=== PATIENT | female | born 1995 | race Caucasian/White ===

== ENCOUNTER 2017-04-09 05:08 | Inpatient (IN) | payer BC, OTHER ==
[2017-04-06 12:34] LABS: ABSOLUTE LYMPHOCYTES (AUTO) 1.6 10^3/uL (0.5-4.7); ABSOLUTE MONOCYTES (AUTO) 0.3 10^3/uL (0.1-1.4); ABSOLUTE NEUT (AUTO) 6.5 10^3/uL (1.7-8.2); BASOPHILS % (AUTO) 0.1 % (0-2); EOSINOPHILS % (AUTO) 0.3 % (0-6); HEMATOCRIT 33.2 % (36.0-47.0); HEMOGLOBIN 11.2 g/dL (12.0-15.5); HGB HCT DIFFERENCE 0.4; LYMPHOCYTES % (AUTO) 19.2 % (13-45); MEAN CORPUSCULAR HEMOGLOBIN 28.1 pg (27.0-33.4); MEAN CORPUSCULAR HGB CONC 33.7 g/dL (32.0-36.0); MEAN CORPUSCULAR VOLUME 84 fl (80-97); RED BLOOD COUNT 3.97 10^6/uL (3.72-5.28); RED CELL DISTRIBUTION WIDTH 14.4 % (11.5-14.0); SEGMENTED NEUTROPHILS % (AUTO) 76.4 % (42-78); WHITE BLOOD COUNT 8.5 10^3/uL (4.0-10.5)
[2017-04-06 12:43] LABS: APPEARANCE,URINE CLEAR; BILIRUBIN,URINE NEGATIVE (NEGATIVE); GLUCOSE, URINE NEGATIVE (NEGATIVE); KETONES,URINE NEGATIVE (NEGATIVE); LEUKOCYTE ESTERASE,URINE TRACE (NEGATIVE); NITRITE,URINE NEGATIVE (NEGATIVE); PROTEIN,URINE NEGATIVE (NEGATIVE); URINE SPECIFIC GRAVITY 1.004; UROBILINOGEN,URINE NEGATIVE mg/dL (<2.0)
[2017-04-06 13:00] LABS: URINE BARBITURATES SCREEN NEGATIVE; URINE METHADONE SCREEN NEGATIVE; URINE OPIATES LOW NEGATIVE; URINE PHENCYCLIDINE SCREEN NEGATIVE
[~2017-04-09 05:08] MED LIST: CEFAZOLIN SODIUM 2 GM in DEXTROSE 5%-WATER 100 ML IV PRN; LACTATED RINGERS 1000 ML IV PRN; LIDOCAINE 0.5% INJ-PF (5 MG/ML) 50 ML SDV SUBCUT PRN; RINGERS SOLUTION,LACTATED 1,500 ML IV PRN
[2017-04-09] MEDS ORDERED: CEFAZOLIN INJ 1 GM VIAL ONE (06:39)
[2017-04-09] MEDS ORDERED: OXYTOCIN/NORMAL SALINE 20 UNIT/1,000 ML RTUINJ ONE (07:15)
[2017-04-09] MEDS ORDERED: OXYTOCIN 10 UNIT/ML VIAL ONE (07:15)
[2017-04-09] MEDS ORDERED: FENTANYL CITRATE INJ/PF 100 MCG/2 ML AMPUL ONE (07:15)
[2017-04-09] MEDS ORDERED: EPHEDRINE SULFATE INJ 50 MG/1 ML AMPULE ONE (07:15)
[2017-04-09] MEDS ORDERED: MIDAZOLAM 2 MG/2 ML INJ ONE (07:16)
[2017-04-09] MEDS ORDERED: KETAMINE HCL INJ 500 MG/10 ML VIAL ONE (08:16)
[2017-04-09] MEDS ORDERED: MORPHINE SULFATE 10 MG/ML INJ IV PRN (08:36)
[2017-04-09] MEDS ORDERED: MEPERIDINE HCL/PF INJ 25 MG/1 ML DISP.SYRIN IV PRN (08:36)
[2017-04-09] MEDS ORDERED: DIPHENHYDRAMINE HCL 50 MG/ML VIAL IV PRN (08:36)
[2017-04-09] MEDS ORDERED: FENTANYL CITRATE INJ/PF 100 MCG/2 ML AMPUL IV PRN ×3 (08:36)
[2017-04-09] MEDS ORDERED: ONDANSETRON HCL INJ/PF 4 MG/2 ML SDV IV PRN (08:36)
[2017-04-09] MEDS ORDERED: PROMETHAZINE HCL INJ 25 MG/1 ML VIAL IV PRN ×3 (08:36→09:22)
--- NOTE | 2017-04-09 09:20 | PDOC DELIVERY SUMMARY ---
Delivery Summary - Maternal Hx : I Hx Para: 0 Hx # Term Pregnancies: 0 Hx # Pregnancies: 0 Hx Total # of Abortions (Sponateous & Elective): 0 Number of Living Children: 0 HAKEEM: 04/12/17 Gestational Age: 39+4 Risk Factors: Other - Persistent breech Ruptured Membranes: AROM Time of Rupture: 08:25 Fluids: Clear Fluid Description: TERMINAL MECONIUM NOTED - Delivery Labor: Not In Labor, Prolonged Second Stage- Greater Than 2.5 Hours Presentation: Breech - Complex Breech Heart Rate Monitoring: Done Pre-Operatively Uterine Contraction Monitoring: External Support Person Present: Yes Location: OR : Scheduled Placenta: Within Normal Limits Placenta Description: Normal Number of Vessels (Cord): 3 Nuchal Cord: Yes - and body Delivery of Placenta Date: 04/09/17 Delivery of Placenta Time: 08:28 - Medications Type of Anesthesia:: Spinal - Infant Assess and Care Baby 1 Female Delivery of Infant Date: 04/09/17 Delivery of Time: 08:27 at 1 minute: 8 at 5 minutes: 9 at 10 minutes: 9 Preprinted Number On Band: [id number] Skin to Skin: Yes Skin to Skin (Mins): 30 To Nursery At: 09:07 Mode of Transport: Bassinet Delivery Weight: 2.78 kg Delivery Length: 18.5 in - Delivery Personnel Table Cover Folder: GERMAN FRIAS Nursery RN: BRAD MD: NADIA LANDRY
[2017-04-09] MEDS ORDERED: ACETAMINOPHEN 100 ML IV ONE (09:21)
[2017-04-09] MEDS ORDERED: ACETAMINOPHEN 100 ML IV PRN (09:22)
[2017-04-09] MEDS ORDERED: SIMETHICONE 80 MG TAB.CHEW PO PRN (09:22)
[2017-04-09] MEDS ORDERED: OXYTOCIN/NORMAL SALINE 1,000 ML IV PRN (09:22)
[2017-04-09] MEDS ORDERED: OXYCODONE-ACETAMINOPHEN 5-325 MG TABLET PO PRN (09:22)
[2017-04-09] MEDS ORDERED: DIPH/PERTUSS(ACELL)/TETANUS VAC/PF 0.5 ML SYR (>=10YO) IM PRN (09:22)
[2017-04-09] MEDS ORDERED: ACETAMINOPHEN 325 MG TABLET PO PRN (09:22)
[2017-04-09] MEDS ORDERED: MEASLES,MUMPS&RUBELLA VACC/PF 0.5 ML VIAL SUBCUT PRN (09:22)
--- NOTE | 2017-04-09 09:22 | Brief Operative Note ---
BRIEF OPERATIVE REPORT DATE OF SURGERY: 04/09/17 TIME OF SURGERY: 09:15 PREOPERATIVE DIAGNOSIS: at 39+4ega, Persistent Breech Presentation POSTOPERATIVE DIAGNOSIS: JARED - delivered SURGEON: NADIA LANDRY FINDINGS: VFI delivered from complex breech presentation, Nuchal and body cord noted. Terminal Meconium. Normal uterus, normal tubes/ovaries. Apgars 8/9. weight 2780g COMPLICATIONS: None ESTIMATED BLOOD LOSS: 600ml TISSUE REMOVED OR ALTERED: placenta and cord not sent to pathology TECHNICAL PROCEDURE: Primary LTCS
[2017-04-09] MEDS ORDERED: MORPHINE SULFATE 10 MG/ML INJ ONE (09:42)
[2017-04-09] MEDS: DOCUSATE SODIUM 100 MG CAPSULE PO SCH ×2 (12:53→17:50)
[2017-04-09] MEDS: PRENATAL VITAMIN W-O CA NO5/FE FUMARATE/FA CAPSULE PO SCH (12:53)
[2017-04-09] MEDS: KETOROLAC TROMETHAMINE INJ/PF 30 MG/1 ML SDV IV SCH ×2 (13:43→21:29)
[2017-04-09] MEDS: OXYCODONE-ACETAMINOPHEN 5-325 MG TABLET PO PRN ×2 (15:16→19:48)
[2017-04-09] MEDS ORDERED: DEXAMETHASONE SOD PHOSPHATE INJ 4 MG/1 ML VIAL ONE (15:25)
[2017-04-09] MEDS ORDERED: KETOROLAC TROMETHAMINE 60 MG/2 ML SDV ONE (15:25)
[2017-04-09] MEDS ORDERED: METOCLOPRAMIDE HCL INJ/PF 10 MG/2 ML SDV ONE (15:25)
[2017-04-09] MEDS ORDERED: LIDOCAINE 2% INJ-PF (20 MG/ML) 10 ML AMPUL ONE (15:25)
[2017-04-09] MEDS ORDERED: PHENYLEPHRINE HCL INJ/PF 10 MG/1 ML SDV ONE (15:25)
[2017-04-09] MEDS ORDERED: ONDANSETRON HCL INJ/PF 4 MG/2 ML SDV ONE (15:25)
[2017-04-10] MEDS: OXYCODONE-ACETAMINOPHEN 5-325 MG TABLET PO PRN ×4 (00:19→17:50)
[2017-04-10 06:21] LABS: HEMATOCRIT 26.5 % (36.0-47.0); HGB HCT DIFFERENCE 0.5; MEAN CORPUSCULAR HEMOGLOBIN 27.9 pg (27.0-33.4); MEAN CORPUSCULAR VOLUME 82 fl (80-97); RED BLOOD COUNT 3.24 10^6/uL (3.72-5.28); RED CELL DISTRIBUTION WIDTH 14.7 % (11.5-14.0); WHITE BLOOD COUNT 11.2 10^3/uL (4.0-10.5)
[2017-04-10] MEDS: KETOROLAC TROMETHAMINE INJ/PF 30 MG/1 ML SDV IV SCH (06:21)
[2017-04-10] MEDS: DOCUSATE SODIUM 100 MG CAPSULE PO SCH ×2 (10:01→17:48)
[2017-04-10] MEDS: PRENATAL VITAMIN W-O CA NO5/FE FUMARATE/FA CAPSULE PO SCH (10:01)
--- NOTE | 2017-04-10 10:19 | PDOC PROGRESS REPORT ---
Subjective-OB Subjective: Post Delivery Day: 1 21 year old. Denies any needs at this time, states lochia is stable, pain well controlled, voiding without difficulty, passing gas, tolerating diet. Physical Exam (OB) Vital Signs: Temp Pulse Resp BP Pulse Ox 97.9 F 70 18 102/60 98 04/10/17 07:50 04/10/17 07:50 04/10/17 07:50 04/10/17 07:50 04/10/17 07:50 Intake & Output 04/09/17 04/10/17 04/11/17 06:59 06:59 06:59 Intake Total 350 Output Total 3025 Balance -3025 350 Weight 80 kg - PIH/Pre-Eclampsia Clonus: Negative - Dressing Removed: No Incision: Dressing Closure Type: Sutures - Lochia Lochia Amount: Scant < 10 ml Lochia Color: Rubra/Red - Abdomen Description: Soft Hernia Present: No Fundal Description: Firm, Midline Fundal Height: u/u - u/2 Objective-Diagnostic Laboratory: 04/10/17 06:09 04/10/17 06:09 WBC 11.2 H RBC 3.24 L Hgb 9.0 L Hct 26.5 L MCV 82 MCH 27.9 MCHC 34.0 RDW 14.7 H Plt Count 153 Assessment and Plan(PN) - Assessment and Plan (1) Status post primary low transverse section Is this a current diagnosis for this admission?: YesPlan: routine post op care - Time Spent with Patient Time with patient: Less than 15 minutes Critical Time spent with patient: Less than 15 minutes Medications reviewed and adjusted accordingly: Yes - Disposition Anticipated Discharge: Home Within: within 24 hours
[2017-04-10] MEDS: IBUPROFEN 800 MG TABLET PO SCH ×2 (11:50→17:49)
[2017-04-10] MEDS ORDERED: HYDROMORPHONE HCL INJ/PF 2 MG/ML AMPULE ONE (11:51)
[2017-04-10] MEDS ORDERED: ONDANSETRON HCL INJ/PF 4 MG/2 ML SDV ONE (14:12)
[2017-04-11] MEDS: IBUPROFEN 800 MG TABLET PO SCH ×3 (00:46→13:27)
[2017-04-11] MEDS: OXYCODONE-ACETAMINOPHEN 5-325 MG TABLET PO PRN (04:25)
[2017-04-11] MEDS: DOCUSATE SODIUM 100 MG CAPSULE PO SCH (09:16)
[2017-04-11] MEDS: PRENATAL VITAMIN W-O CA NO5/FE FUMARATE/FA CAPSULE PO SCH (09:16)
--- NOTE | 2017-04-11 12:20 | PDOC DISCHARGE SUMMARY ---
Final Diagnosis Discharge Date: 04/11/17 - Final Diagnosis (1) Status post primary low transverse section Is this a current diagnosis for this admission?: Yes (2) Acute blood loss anemia Is this a current diagnosis for this admission?: Yes Discharge Data - Discharge Medication Home Medications: Iron 18 mg PO DAILY 04/06/17 Vit/Iron Fumarate/FA [ Tablet] 1 each PO DAILY 04/06/17 Docusate Sodium [Colace 100 mg Capsule] 100 mg PO BID #60 capsule 04/11/17 Ibuprofen [Motrin 800 mg Tablet] 800 mg PO Q8HP PRN #60 tablet 04/11/17 Oxycodone HCl/Acetaminophen [Percocet 5-325 mg Tablet] 1 tab PO Q4HP PRN #30 tablet 04/11/17 Reason(s) for Admission: Ceasarean Section-Primary - persistent breech Procedures: NST, Ultrasound Intrapartum Procedure(s): : Low Cervical, Transverse - Diagnosis Test Laboratory: Temp Pulse Resp BP Pulse Ox 98.9 F 92 16 126/78 H 100 04/11/17 10:19 04/11/17 10:19 04/11/17 10:19 04/11/17 10:19 04/11/17 10:19 04/06/17 04/06/17 04/10/17 09:51 11:30 06:09 RBC 3.97 3.24 L Hgb 11.2 L 9.0 L Hct 33.2 L 26.5 L Urine Opiates Screen NEGATIVE - Discharge information/Instructions Discharge Activity: Activity As Tolerated, Balance Activity w/Rest, No Driving, No Lifting Over 10 Pounds, No Lifting/Push/Pulling, Pelvic Rest, Slowly Increase Activity, No tub bath Discharge Diet: Regular Disposition: HOME, SELF-CARE Follow up with: [facility] in: 1, Weeks - incision check
[2017-04-11 13:08] VITALS: BP 114/68
--- NOTE | 2017-05-12 09:29 | Operative Report ---
Operative Report DATE OF SURGERY: 04/09/17 PREOPERATIVE DIAGNOSIS: at 39+4ega, Persistent Breech Presentation POSTOPERATIVE DIAGNOSIS: JARED - delivered, Terminal Meconium OPERATION: Primary LTCS SURGEON: NADIA LANDRY ANESTHESIA: Spinal TISSUE REMOVED OR ALTERED: placenta and cord not sent to pathology COMPLICATIONS: None ESTIMATED BLOOD LOSS: 600ml INTRAOPERATIVE FINDINGS: VFI delivered from complex breech presentation, Nuchal and body cord noted. Terminal Meconium. Normal uterus, normal tubes/ovaries. Apgars 8/9. weight 2780g PROCEDURE: Anesthesia provider: [Yane Sanders MD, CRNA] Estimated blood loss: [600ml] Urine output: [400ml] IV fluids: [2000ml] Indications: [21yo at 39+4ega presents for scheduled primary C/S due to persistent breech. US in office on 04/06 with persistent breech and today's US with persistent breech just prior to surgery. GBS positive. ECV procedure and options reviewed and patient declines ECV and desires Primary LTCS. The risks, benefits, alternatives were reviewed with the patient and she desires to proceed with planned procedure.] Procedure: The patient was taken to the operating room where spinal anesthesia was obtained and found to be adequate. She was then prepped and draped in the normal sterile fashion and placed in the dorsal supine position with a leftward tilt. A Pfannenstiel skin incision was then made and carried through to the underlying layers of the fascia with the scalpel. The fascia was incised in the midline and the incision extended laterally with the Cordova scissors. The superior aspect of the fascial incision was then grasped with Cameron clamps elevated and the underlying rectus muscles dissected off [bluntly]. Attention was then turned to the inferior aspect of the fascial incision which in a similar fashion was grasped, tented up with Siddharth clamps, and the rectus muscles dissected off [bluntly]. The rectus muscles were then in the midline and the peritoneum at the amount identified and entered [bluntly]. The peritoneal incision was then extended superiorly and inferiorly with good visualization of the bladder. The bladder blade was inserted and the vesicouterine peritoneum identified grasped with Bhutanese pickups and entered sharply with the Metzenbaum scissors. This incision was then extended laterally with the Metzenbaum scissors and a bladder flap created digitally. The bladder blade was then reinserted and the lower uterine segment incised in a transverse fashion with the scalpel. The uterine incision was then extended bluntly. The bladder blade was removed and the infant's head was delivered from cephalic presentation atraumatically. The nose and mouth were suctioned and the cord doubly clamped and cut. And the was handed off to waiting pediatricians. The placenta was then delivered spontaneously and the uterus exteriorized and cleared of all clots and debris. The uterine incision was then repaired with 1- 0 Vicryl in a running locked fashion. A second layer of the same suture was used to obtain hemostasis via imbrication of the initial layer. The bladder flap was then repaired with 3-0 chromic in a running fashion. The uterus was returned to the patient's abdomen and Interceed was placed overlying the uterine incision to prevent adhesions. The gutters were cleared of all clots and debris. All operative sites were noted to be hemostatic. The fascia was reapproximated with 0 Vicryl in a running fashion from each lateral edge to the midline. The skin was closed with 3-0 Monocryl in a running subcuticular fashion with overlying Dermabond tape for additional dressing as well as wound closure. The patient tolerated the procedure well. Sponge lap needle and instrument counts are correct times. 2 g of Ancef were given prior to skin incision. The patient was taken to the recovery area awake and in stable condition.
== END 2017-04-11 13:49 | disposition home or self-care (01) | DRG 765 ==
LOC: 2S 05:08
PROVIDERS: ADMIT Student in an Organized Health Care Education/Training Program; ATTEND Student in an Organized Health Care Education/Training Program
PROC: 4A1HXCZ Monitoring of Products of Conception, Cardiac Rate, External Approach (ICD-10-PCS; 2017-04-09)
PROC: 10D00Z1 Extraction of Products of Conception, Low, Open Approach (ICD-10-PCS; principal; 2017-04-09 07:30)
DX: O32.1XX0 Maternal care for breech presentation, not applicable or unspecified (principal); D62 Acute posthemorrhagic anemia; O99.02 Anemia complicating childbirth; O69.81X0 Labor and delivery complicated by cord around neck, without compression, not applicable or unspecified; O77.0 Labor and delivery complicated by meconium in amniotic fluid; Z3A.39 39 weeks gestation of pregnancy; Z37.0 Single live birth
CPT/HCPCS: 1961; 36415; 59025; 80307; 81001; 85025; 85027; 86850; 86900; 86901; 94799; J0131; J0690; J1100; J1170; J1885; J2250; J2270; J2370; J2405; J2590; J2765; J3010; J3490; J7120

== ENCOUNTER 2017-04-12 21:24 | Emergency (ER) | payer BC, OTHER ==
[2017-04-12] MEDS ORDERED: ONDANSETRON 4 MG TAB.RAPDIS PO ONE (22:16)
--- NOTE | 2017-04-12 22:17 | ER Document Report ---
ED Medical Screen (RME) - General Stated Complaint: HEADACHE Time Seen by Provider: 04/12/17 22:16 Notes: 21-year-old female, 4 days status post with epidural, reports post epidural headaches, states she was told to come in to get a blood patch. C- section performed by Dr. Herr. She denies fever, abdominal pain, she states she is taking ibuprofen and Percocet for headache without improvement. Past medical history of scoliosis. TRAVEL OUTSIDE OF THE [place] IN LAST 30 DAYS: No - Related Data Allergies/Adverse Reactions: sulfamethoxazole [From Bactrim] Allergy (Severe, Verified 04/12/17 22:14) rash trimethoprim [From Bactrim] Allergy (Severe, Verified 04/12/17 22:14) rash Past Medical History Renal/ Medical History: Denies: Hx Peritoneal Dialysis Musculoskeltal Medical History: Denies Hx Fibromyalgia Traumatic Medical History: Denies: Hx Fractures Infectious Medical History: Denies: Hx HIV Physical Exam - General General appearance: Appears well In distress: None - Cardiovascular Rhythm: Regular Heart sounds: Normal auscultation, S1 appreciated, S2 appreciated - Abdominal Inspection: Healed incision - Good healing wounds in the lower abdomen area
[2017-04-12] MEDS ORDERED: ONDANSETRON 4 MG TAB.RAPDIS ONE (22:20)
--- NOTE | 2017-04-13 01:24 | ER Document Report ---
ED General - General Chief Complaint: Headache Stated Complaint: HEADACHE Time Seen by Provider: 04/12/17 22:16 Notes: Patient is a 21-year-old female 3 days who presents with concerns of a positional headache. She presents today after being instructed by apparently an anesthesiologist to come to the emergency room and should her headache fail to resolve for a blood patch. Patient states the headache is not present when she is lying flat but if she does stand up and immediately developed. Does describe as a severe, constant, stabbing headache. Notes associated nausea without vomiting. States his headache is prohibiting her from completing normal activities of daily living including taking care of her . She denies any associated weakness or numbness. TRAVEL OUTSIDE OF THE [place] IN LAST 30 DAYS: No - Related Data Allergies/Adverse Reactions: sulfamethoxazole [From Bactrim] Allergy (Severe, Verified 04/12/17 22:14) rash trimethoprim [From Bactrim] Allergy (Severe, Verified 04/12/17 22:14) rash Past Medical History - General Information source: Patient - Social History Smoking Status: Never Smoker Chew tobacco use (# tins/day): No Frequency of alcohol use: None Drug Abuse: None Lives with: Parents Family History: Reviewed & Not Pertinent Renal/ Medical History: Denies: Hx Peritoneal Dialysis Musculoskeltal Medical History: Denies Hx Fibromyalgia Traumatic Medical History: Denies: Hx Fractures Infectious Medical History: Denies: Hx HIV Review of Systems - Review of Systems Notes: Constitutional: Negative for fever. HENT: Negative for sore throat. Eyes: Negative for visual changes. Cardiovascular: Negative for chest pain. Respiratory: Negative for shortness of breath. Gastrointestinal: Negative for abdominal pain, vomiting or diarrhea. Genitourinary: Negative for dysuria. Musculoskeletal: Negative for back pain. Skin: Negative for rash. Neurological: Positive for headache 10 point ROS negative except as marked above and in HPI. Physical Exam - Vital signs Vitals: Pulse Resp BP Pulse Ox 77 20 129/82 H 99 04/13/17 01:48 04/13/17 01:48 04/13/17 01:48 04/13/17 01:48 Interpretation: Normal Notes: PHYSICAL EXAMINATION: GENERAL: Well-appearing, well-nourished and in no acute distress. HEAD: Atraumatic, normocephalic. EYES: sclera anicteric, conjunctiva are normal. ENT: Moist mucous membranes. NECK: Normal range of motion LUNGS: Normal work of breathing HEART: 2+ radial pulses bilaterally EXTREMITIES: no pitting or edema. No cyanosis. NEUROLOGICAL: No focal neurological deficits. Moves all extremities spontaneously and on command. PSYCH: Normal mood, normal affect. SKIN: Warm, Dry, normal turgor, no rashes or lesions noted. Course - Re-evaluation Re-evalutation: 04/13/17 01:21 Patient presents with a post lumbar puncture headache, classic with positional worsening of the headache. Patient is otherwise well in appearance, no focal neurologic deficits. I did discuss with anesthesia on-call Dr. Mata who did declined to come down and provide a blood patch although somebody within the anesthesia unit has apparently promised this patient that if she came to the emergency department she would receive this therapy. I have arranged with the nursing soakers supervisor to contact the patient in the morning for an appointment to have a blood patch in the [facility] tomorrow. I have provided my apology to the patient and her mother for their time here in the emergency department despite us being unable to provide the procedure that they had been told they would receive. Patient's headache and history do not appear consistent with an acute subarachnoid hemorrhage, dural venous sinus thrombosis or acute meningitis. I do not feel any further laboratory or imaging studies are indicated at this time. - Vital Signs Vital signs: Temp Pulse Resp BP Pulse Ox 77 20 129/82 H 99 04/13/17 01:48 04/13/17 01:48 04/13/17 01:48 04/13/17 01:48 Discharge - Discharge Clinical Impression: Post lumbar puncture headache Condition: Good Disposition: HOME, SELF-CARE Additional Instructions: Somebody from the anesthesia unit will contact you tomorrow to schedule an appointment for a blood patch for your headache tomorrow morning. I do again apologize for the confusion! Referrals: NADIA LANDRY MD [Primary Care Provider] - Follow up as needed
[2017-04-13 01:49] VITALS: BP 129/82
== END 2017-04-13 01:48 | disposition home or self-care (01) ==
LOC: ER 21:24
DX: G97.1 Other reaction to spinal and lumbar puncture (principal); R51 Headache; R11.0 Nausea
CPT/HCPCS: 99283; S0119